=== PATIENT | female | born 1955 | race Caucasian/White ===

== ENCOUNTER 2018-05-15 08:41 | Day surgery (SDC) | payer BC ==
[~2018-05-15] VITALS: Ht 157.5 cm; Wt 72.4 kg
[~2018-05-15 08:41] MED LIST: ACET500; ALBU90I INH; AZIT250 PO; HYDACE5 PO; IBUP400; RXHYDACE PO
[2018-05-15] MEDS ORDERED: LEVSOD150 (09:10)
== END 2018-05-15 11:08 | disposition home or self-care (01) ==
LOC: ORSCSDS 08:41
PROVIDERS: Surgery
PROC: 0DJD8ZZ Inspection of Lower Intestinal Tract, Via Natural or Artificial Opening Endoscopic (ICD-10-PCS; principal; 2018-05-15 10:00)
DX: Z12.11 Encounter for screening for malignant neoplasm of colon (principal); K57.30 Diverticulosis of large intestine without perforation or abscess without bleeding; E03.9 Hypothyroidism, unspecified; Z79.899 Other long term (current) drug therapy
CPT/HCPCS: J7120

== ENCOUNTER 2023-04-17 14:46 | Emergency (ER) | payer OTHER ==
[~2023-04-17] VITALS: Ht 154.9 cm; Wt 70.3 kg
[~2023-04-17 14:46] MED LIST changes: +LEVSOD150
[2023-04-17 15:07] VITALS: BP 115/84
== END 2023-04-17 16:50 | disposition home or self-care (01) ==
LOC: ER 14:46
DX: S93.401A Sprain of unspecified ligament of right ankle, initial encounter (principal); Z79.899 Other long term (current) drug therapy; W10.9XXA Fall (on) (from) unspecified stairs and steps, initial encounter
CPT/HCPCS: 73610; 99283-25

== ENCOUNTER 2024-08-25 07:22 | Day surgery (SDC) | payer OTHER | END 2024-08-25 23:00 | disposition home or self-care (01) | LOC: CT 07:22 | DX: I25.10 Atherosclerotic heart disease of native coronary artery without angina pectoris (principal) | CPT/HCPCS: 75574; Q9967 ==